=== PATIENT | female | born 1955 | race Caucasian/White ===

== ENCOUNTER 2018-05-01 12:56 | Emergency (ER) | payer BC ==
[~2018-05-01] VITALS: Ht 180.3 cm; Wt 113.4 kg
[2018-05-01] MEDS ORDERED: LIPITOR80 MG PO (13:13)
[2018-05-01] MEDS ORDERED: PROZAC40 MG PO (13:14)
[2018-05-01] MEDS ORDERED: BACLOFEN 10MG T10 MG PO (13:15)
[2018-05-01] MEDS ORDERED: LISINOPRIL-HCT1 EAC2 PO (13:15)
[2018-05-01] MEDS ORDERED: NORCO 10-325 T1 EACH PO (13:16)
[2018-05-01] MEDS ORDERED: NOVOLOG100 UNIT/1 SUBQ (13:16)
[2018-05-01] MEDS ORDERED: COREG CR10 MG PO (13:16)
[2018-05-01] MEDS ORDERED: DOXEPIN 25 MG C25 M1 PO (13:17)
[2018-05-01] MEDS ORDERED: NABUMETONE 750750 M1 PO (15:32)
[2018-05-01 15:44] VITALS: BP 118/63
== END 2018-05-01 15:45 | disposition home or self-care (01) ==
LOC: M.ERS 12:56
DX: S16.1XXA Strain of muscle, fascia and tendon at neck level, initial encounter (principal); S39.012A Strain of muscle, fascia and tendon of lower back, initial encounter; S29.012A Strain of muscle and tendon of back wall of thorax, initial encounter; S60.221A Contusion of right hand, initial encounter; R07.89 Other chest pain; I10 Essential (primary) hypertension; E11.9 Type 2 diabetes mellitus without complications; F32.9 Major depressive disorder, single episode, unspecified; M19.90 Unspecified osteoarthritis, unspecified site; Z95.5 Presence of coronary angioplasty implant and graft; Z96.653 Presence of artificial knee joint, bilateral; Z79.4 Long term (current) use of insulin; V89.2XXA Person injured in unspecified motor-vehicle accident, traffic, initial encounter; Y92.89 Other specified places as the place of occurrence of the external cause; Y93.89 Activity, other specified; Y99.8 Other external cause status